=== PATIENT | male | born 1945 | race Hispanic/Latino ===

== ENCOUNTER 2019-08-29 08:25 | Outpatient (CLI) | payer MEDICARE ==
[2019-08-29] MEDS ORDERED: Iopamidol 300 61% 100 ML VIAL FS ONE (09:00)
--- NOTE | 2019-08-29 12:02 | CT ---
CT OF THE ABDOMEN AND PELVIS WITH AND WITHOUT IV CONTRAST INDICATION: Hematuria TECHNIQUE: Noncontrast CT of the abdomen and pelvis was performed. Postcontrast images were obtained in the nephrographic phase and delayed phase. Axial and coronal reformatted images were constructed from the raw data. COMPARISON: Noncontrast CT the abdomen and pelvis [facility] July [facility], [facility] [place] FINDINGS: ABDOMEN: Lung bases: Clear Liver: No focal lesion. Gallbladder: Normal appearing. Pancreas: Normal. Adrenal glands: Normal. Spleen: Normal. Kidneys and ureters: No solid renal lesion is demonstrated. There is a surgical clip seen near the in ferior pole of the right kidney. There is nonspecific mild wall thickening seen diffusely involving the left ureter without dilatation. No definite abnormally enhancing lesion is seen involving the int raluminal bladder. No obstructing lesion is noted. Vasculature: Normal. Lymph nodes:No lymphadenopathy. Free fluid in abdomen:No free fluid is evident. PELVIS: Small and large bowel: Normal Appendix:Normal Bladder: Normal. Rectal and perirectal soft tissues:Normal. Reproductive structures: Normal. Free fluid in pelvis: No free fluid is evident. Lymphadenopathy pelvis: No lymphadenopathy is evident. Osseous structures: No acute osseous abnormality. No destructive osteolytic or osteoblastic lesion i s identified. There is scattered degenerative and osteoarthritic changes. Soft tissues:Normal. IMPRESSION: 1. Nonspecific mild wall thickening involving the left ureter. Some of this may be related to scarrin g or inflammation from prior obstructive renal stones. This may also be infectious in etiology. No current renal or ureteral calculus is noted. No hydronephrosis is evident. No gross urothelial lesion is noted.
== END 2019-08-29 08:26 | disposition home or self-care (01) ==
LOC: SCSCT 08:25
PROVIDERS: ATTEND Internal Medicine
DX: R31.9 Hematuria, unspecified (principal); R93.5 Abnormal findings on diagnostic imaging of other abdominal regions, including retroperitoneum
CPT/HCPCS: 74178; 82565; Q9967